=== PATIENT | female | born 1985 | race Caucasian/White ===

== ENCOUNTER → 2018-08-18 | Outpatient (CLI) | payer OTHER ==
[~2018-08-18] MED LIST: ACET325; ALBU90I; ALBU90OI; AMOCLA875 PO; AMOX250 PO; AMOX500 PO; AZIT500 PO; Adipex-P37.5 M1 PO; BIRTH CONTROL PO; CEPH500 PO; CIPR500 PO; CYCL10 PO; DIPH25 PO; HYDACE10B PO; HYDACE5 PO; HYDACE5325 PO; IBUP600 PO; IBUP800; LAVAP4L PO; MELO7.5 PO; META800 PO; METR500 PO; MULVITMINE; NAPR550 PO; NEOPOLHCSU OT; NORETHTP; OXYACE5T PO; PENVK500 PO; PHENA200 PO; PROACE100 PO; Permethrin60 GM TP; RANI150; RXCODACET PO; RXCYCL10 PO; RXNAPNA550 PO; RXPHEN200 PO; RXPROM25 PO; RXSULTRIDS PO; SULTRIDS PO
[2018-08-18 16:19] LABS: BASOPHILS ABSOLUTE AUTO 0.01 K/mm3 (0.00-0.23); BASOPHILS PERCENT AUTO 0 % (0-2); EOSINOPHILS ABSOLUTE AUTO 0.08 K/mm3 (0.00-0.68); EOSINOPHILS PERCENT AUTO 1 % (0-6); Hematocrit 39.9 % (33.0-51.0); Hemoglobin 13.2 g/dL (11.5-16.0); IMMATURE GRAN ABSOLUTE AUTO 0.02 K/mm3 (0.00-0.10); IMMATURE GRAN PERCENT AUTO 0 % (0-1); LYMPHOCYTES ABSOLUTE AUTO 1.99 K/mm3 (0.84-5.20); LYMPHOCYTES PERCENT AUTO 34 % (21-46); MONOCYTES ABSOLUTE AUTO 0.45 K/mm3 (0.16-1.47); MONOCYTES PERCENT AUTO 8 % (4-13); Mean Corpuscular HGB 28.1 pg (26.0-34.0); Mean Corpuscular HGB Conc 33.1 g/dL (31.5-36.5); Mean Corpuscular Volume 85 fL (80-100); Mean Platelet Volume 10.3 fL (9.1-12.4); NEUTROPHILS ABSOLUTE AUTO 3.23 K/mm3 (1.96-9.15); NEUTROPHILS PERCENT AUTO 56 % (41-73); Platelet Count 275 K/mm3 (150-400); RDW Coefficient Variation 13.1 % (11.7-14.2); RDW Standard Deviation 40.4 fL (35.1-46.3); White Blood Cell Count 5.78 K/mm3 (4.00-11.30)
[2018-08-18 16:38] LABS: Anion Gap 9 mmol/L (6-16); Blood Urea Nitrogen 10 mg/dL (8-24); Bun/Creatinine Ratio 14.5 (12.0-20.0); CO2, Blood 27 mmol/L (21-32); Calcium, Blood 9.3 mg/dL (8.5-10.1); Chloride, Blood 102 mmol/L (98-108); Creatinine, Blood 0.69 mg/dL (0.40-1.00); Glomerular Filtration Rate >60 (60-); Glucose, Blood 87 mg/dL (70-99); Potassium, Blood 3.7 mmol/L (3.5-5.5); Sodium, Blood 138 mmol/L (136-145); Thyroid Stimulating Hormone 0.832 uIU/mL (0.360-4.800)
== END ==
LOC: LAB SHORT 16:14 → LAB EV 16:14
PROVIDERS: Physician Assistant Surgical
DX: R07.9 Chest pain, unspecified (principal); R53.83 Other fatigue
CPT/HCPCS: 80048; 84443; 85025

== ENCOUNTER 2022-06-24 15:18 | Emergency (ER) | payer OTHER ==
[~2022-06-24] VITALS: Ht 160 cm; Wt 113.4 kg
[~2022-06-24 15:18] MED LIST changes: +Naprosyn500 MG PO
[2022-06-24 16:19] LABS: Source, Urine Clean Catch
[2022-06-24 16:21] LABS: Appearance, Urine Cloudy (Clear); Bilirubin, Urine Neg (Neg); Blood, Urine 3+ (Neg); Glucose Qualitative, Urine Neg (Neg); Ketones, Urine Neg (Neg); Leukocyte Esterase, Urine Neg (Neg); Nitrite, Urine Neg (Neg); Protein, Urine Neg (Neg); Specific Gravity, Urine 1.015 (1.003-1.022); Urobilinogen, Urine NORM (Normal)
[2022-06-24 16:29] LABS: Color, Urine Pale Yellow (P-Yellow)
[2022-06-24 16:30] LABS: Amorphous Heavy (0-Heavy)
[2022-06-24 16:31] LABS: White Blood Cells, Urine 0-2 /hpf (0-5)
[2022-06-24 16:32] LABS: Squamous Epithelial Cells Few /hpf (Few)
[2022-06-24 16:33] LABS: Bacteria Mod /hpf
[2022-06-24] MEDS ORDERED: Pyridium200 MG PO (17:25)
[2022-06-24] MEDS ORDERED: CEFD300 PO (17:25)
== END 2022-06-24 17:53 | disposition home or self-care (01) ==
LOC: ER 15:18
PROVIDERS: Physician Assistant
DX: N39.0 Urinary tract infection, site not specified (principal); B96.89 Other specified bacterial agents as the cause of diseases classified elsewhere
CPT/HCPCS: 81001

== ENCOUNTER → 2022-07-17 | Outpatient (CLI) | payer OTHER ==
[~2022-07-17] MED LIST changes: +CEFD300 PO; +Pyridium200 MG PO
== END | disposition home or self-care (01) ==
LOC: LAB 14:40 → LAB SHORT 14:40
DX: R30.9 Painful micturition, unspecified (principal)
CPT/HCPCS: 87086

== ENCOUNTER 2024-10-11 14:44 | Emergency (ER) | payer OTHER ==
[~2024-10-11] VITALS: Ht 162.6 cm; Wt 99.8 kg
[2024-10-11 16:18] LABS: BASOPHILS ABSOLUTE AUTO 0.03 K/mm3 (0.00-0.23); BASOPHILS PERCENT AUTO 0 % (0-2); EOSINOPHILS ABSOLUTE AUTO 0.25 K/mm3 (0.00-0.68); EOSINOPHILS PERCENT AUTO 3 % (0-6); Hematocrit 41.4 % (33.0-51.0); Hemoglobin 13.9 g/dL (11.5-16.0); IMMATURE GRAN ABSOLUTE AUTO 0.03 K/mm3 (0.00-0.10); IMMATURE GRAN PERCENT AUTO 0 % (0-1); LYMPHOCYTES PERCENT AUTO 17 % (21-46); MONOCYTES ABSOLUTE AUTO 0.42 K/mm3 (0.16-1.47); MONOCYTES PERCENT AUTO 6 % (4-13); Mean Corpuscular HGB 28.1 pg (26.0-34.0); Mean Corpuscular HGB Conc 33.6 g/dL (31.5-36.5); Mean Corpuscular Volume 84 fL (80-100); NEUTROPHILS ABSOLUTE AUTO 5.53 K/mm3 (1.96-9.15); NEUTROPHILS PERCENT AUTO 73 % (41-73); Platelet Count 345 K/mm3 (150-400); RDW Coefficient Variation 13.4 % (11.7-14.2); RDW Standard Deviation 40.9 fL (35.1-46.3); Red Blood Cell Count 4.94 M/mm3 (3.80-5.20); White Blood Cell Count 7.56 K/mm3 (4.00-11.30)
[2024-10-11 16:50] LABS: Albumin/Globulin Ratio 0.9 (0.8-1.8); Bilirubin, Total 0.6 mg/dL (0.1-1.0); Bun/Creatinine Ratio 15.7 (12.0-20.0); Calcium, Blood 9.3 mg/dL (8.5-10.1); Creatinine, Blood 0.57 mg/dL (0.40-1.00); Globulin, Blood 4.4 g/dL (2.2-4.0); Potassium, Blood 3.6 mmol/L (3.5-5.5); Total Protein, Blood 8.4 g/dL (6.4-8.2)
[2024-10-11] MEDS ORDERED: Ipratropium/Albuterol SulF 2.5-0.5MG/3 ML Amp INH ONE (17:25)
[2024-10-11] MEDS ORDERED: PredniSONE 20 MG Tab PO ONE (17:25)
[2024-10-11] MEDS ORDERED: Ondansetron HCl 2 MG / ML 2ML Vial ONE (18:12)
[2024-10-11] MEDS ORDERED: Ondansetron HCl 2 MG / ML 2ML Vial IV ONE (18:15)
[2024-10-11 18:17] VITALS: BP 145/62
[2024-10-11] MEDS ORDERED: Prednisone20 MG PO (18:21)
[2024-10-11] MEDS ORDERED: BUDESONIDE-FO10.2 G2 INH (18:21)
[2024-10-12] MEDS ORDERED: BUDESONIDE-FO10.2 G2 INH (08:09)
== END 2024-10-11 18:25 | disposition home or self-care (01) ==
LOC: ER 14:44
PROVIDERS: Physician Assistant
DX: J98.01 Acute bronchospasm (principal); Z79.899 Other long term (current) drug therapy
CPT/HCPCS: 71046; 80053; 84484; 85025; 93005; 93010; 94640; 94664; 96374; 99285-25; J2405; J7512

== ENCOUNTER 2024-12-01 21:15 | Inpatient (IN) | payer OTHER ==
[~2024-12-01] VITALS: Ht 160 cm; Wt 100.1 kg
[~2024-12-01 21:15] MED LIST changes: +BUDESONIDE-FO10.2 G2 INH; +Prednisone20 MG PO
[2024-12-01 21:43] LABS: BASOPHILS ABSOLUTE AUTO 0.03 K/mm3 (0.00-0.23); BASOPHILS PERCENT AUTO 0 % (0-2); EOSINOPHILS ABSOLUTE AUTO 0.09 K/mm3 (0.00-0.68); EOSINOPHILS PERCENT AUTO 1 % (0-6); Hematocrit 40.9 % (33.0-51.0); Hemoglobin 13.6 g/dL (11.5-16.0); IMMATURE GRAN ABSOLUTE AUTO 0.02 K/mm3 (0.00-0.10); IMMATURE GRAN PERCENT AUTO 0 % (0-1); LYMPHOCYTES ABSOLUTE AUTO 1.24 K/mm3 (0.84-5.20); LYMPHOCYTES PERCENT AUTO 15 % (21-46); MONOCYTES ABSOLUTE AUTO 0.47 K/mm3 (0.16-1.47); MONOCYTES PERCENT AUTO 6 % (4-13); Mean Corpuscular HGB 28.3 pg (26.0-34.0); Mean Corpuscular HGB Conc 33.3 g/dL (31.5-36.5); Mean Corpuscular Volume 85 fL (80-100); Mean Platelet Volume 9.7 fL (9.1-12.4); NEUTROPHILS ABSOLUTE AUTO 6.18 K/mm3 (1.96-9.15); NEUTROPHILS PERCENT AUTO 77 % (41-73); Platelet Count 321 K/mm3 (150-400); RDW Coefficient Variation 13.7 % (11.7-14.2); RDW Standard Deviation 42.6 fL (35.1-46.3); White Blood Cell Count 8.03 K/mm3 (4.00-11.30)
[2024-12-01 22:06] LABS: Albumin, Blood 4.2 g/dL (3.4-5.0); Albumin/Globulin Ratio 0.9 (0.8-1.8); Bilirubin, Total 0.5 mg/dL (0.1-1.0); Bun/Creatinine Ratio 15.9 (12.0-20.0); Creatinine, Blood 0.69 mg/dL (0.40-1.00); Globulin, Blood 4.5 g/dL (2.2-4.0); Potassium, Blood 3.5 mmol/L (3.5-5.5); Total Protein, Blood 8.7 g/dL (6.4-8.2)
[2024-12-01 22:37] LABS: CORONAVIRUS COVID-19 AG Negative (NEGATIVE); INFLUENZA A AG Negative (NEGATIVE); INFLUENZA B AG Negative (NEGATIVE)
[2024-12-02] MEDS ORDERED: Ketorolac Tromethamine 30mg Vial IV ONE (00:35)
[2024-12-02] MEDS ORDERED: Ondansetron HCl 2 MG / ML 2ML Vial IV PRN (01:05)
[2024-12-02] MEDS ORDERED: FLU VACC TS2024-25(6MOS UP)/PF 45 MCG/0.5 ML SYRINGE IM ONE (01:05)
[2024-12-02] MEDS ORDERED: Ipratropium/Albuterol SulF 2.5-0.5MG/3 ML Amp INH PRN (01:05)
[2024-12-02 05:29] LABS: BASOPHILS ABSOLUTE AUTO 0.03 K/mm3 (0.00-0.23); BASOPHILS PERCENT AUTO 0 % (0-2); EOSINOPHILS ABSOLUTE AUTO 0.13 K/mm3 (0.00-0.68); EOSINOPHILS PERCENT AUTO 2 % (0-6); Hematocrit 38.7 % (33.0-51.0); Hemoglobin 12.6 g/dL (11.5-16.0); IMMATURE GRAN ABSOLUTE AUTO 0.02 K/mm3 (0.00-0.10); IMMATURE GRAN PERCENT AUTO 0 % (0-1); LYMPHOCYTES ABSOLUTE AUTO 1.28 K/mm3 (0.84-5.20); LYMPHOCYTES PERCENT AUTO 17 % (21-46); MONOCYTES ABSOLUTE AUTO 0.45 K/mm3 (0.16-1.47); MONOCYTES PERCENT AUTO 6 % (4-13); Mean Corpuscular HGB 27.6 pg (26.0-34.0); Mean Corpuscular HGB Conc 32.6 g/dL (31.5-36.5); Mean Corpuscular Volume 85 fL (80-100); Mean Platelet Volume 9.9 fL (9.1-12.4); NEUTROPHILS ABSOLUTE AUTO 5.48 K/mm3 (1.96-9.15); NEUTROPHILS PERCENT AUTO 74 % (41-73); Platelet Count 301 K/mm3 (150-400); RDW Coefficient Variation 13.8 % (11.7-14.2); RDW Standard Deviation 42.5 fL (35.1-46.3); Red Blood Cell Count 4.56 M/mm3 (3.80-5.20); White Blood Cell Count 7.39 K/mm3 (4.00-11.30)
[2024-12-02 06:01] LABS: Albumin, Blood 3.6 g/dL (3.4-5.0); Albumin/Globulin Ratio 0.9 (0.8-1.8); Bilirubin, Total 0.6 mg/dL (0.1-1.0); Bun/Creatinine Ratio 15.4 (12.0-20.0); Calcium, Blood 9.5 mg/dL (8.5-10.1); Creatinine, Blood 0.65 mg/dL (0.40-1.00); Potassium, Blood 4.2 mmol/L (3.5-5.5); Total Protein, Blood 7.6 g/dL (6.4-8.2)
[2024-12-02] MEDS ORDERED: Enoxaparin 40 MG/0.4 ML SYR SC SCH (09:00)
[2024-12-02] MEDS ORDERED: Acetaminophen 500 MG Tab PO PRN (13:05)
[2024-12-02 14:40] VITALS: BP 137/79
--- NOTE | 2024-12-02 15:45 | NUR ---
ADMISSION NOTE: PATIENT ARRIVED TO THE UNIT VIA GURNEY AT 1435. SHE WAS ABLE TO SELF TRANSFER TO THE BED AND IS USING 1 L OF OXYGEN. PATIENT SETTLED IN ROOM, CALL LIGHT PROVIDED, NO SIGNS OR SYMPTOMS OF DISTRESS, PLAN OF CARE ONGOING.
[2024-12-02 19:16] VITALS: BP 133/89
[2024-12-02] MEDS ORDERED: GuaiFENesin 600 MG TabCR PO SCH (21:00)
--- NOTE | 2024-12-03 03:03 | NUR ---
SHIFT SUMMARY PT IS A/O X4, PLEASANT AND COOPERATIVE WITH CARE. O2 @1L VIA NASAL CANNULA, SAT'S>93%. PT DENIES PAIN. NO COUGH NOTED. LUNG SOUNDS DIMINISHED @BASES PER AUSCULTATION. PT TOOK A SHOWER @HS. INDEPENDENT W/I THE HOSPITAL ROOM. NO ACUTE DISTRESS/EVENTS DURING THIS SHIFT. PT IS ABLE TO MAKE HER NEEDS KNOWN. BED AT THE LOWEST POSITION, CALL LIGHT W/I REACH.
[2024-12-03 05:25] VITALS: BP 98/52
[2024-12-03 07:31] VITALS: BP 122/70
[2024-12-03 09:01] LABS: BASOPHILS ABSOLUTE AUTO 0.02 K/mm3 (0.00-0.23); BASOPHILS PERCENT AUTO 0 % (0-2); EOSINOPHILS ABSOLUTE AUTO 0.24 K/mm3 (0.00-0.68); EOSINOPHILS PERCENT AUTO 5 % (0-6); Hematocrit 38.9 % (33.0-51.0); Hemoglobin 12.6 g/dL (11.5-16.0); IMMATURE GRAN ABSOLUTE AUTO 0.02 K/mm3 (0.00-0.10); IMMATURE GRAN PERCENT AUTO 0 % (0-1); LYMPHOCYTES ABSOLUTE AUTO 1.61 K/mm3 (0.84-5.20); LYMPHOCYTES PERCENT AUTO 33 % (21-46); MONOCYTES ABSOLUTE AUTO 0.37 K/mm3 (0.16-1.47); MONOCYTES PERCENT AUTO 8 % (4-13); Mean Corpuscular HGB 27.5 pg (26.0-34.0); Mean Corpuscular HGB Conc 32.4 g/dL (31.5-36.5); Mean Corpuscular Volume 85 fL (80-100); NEUTROPHILS ABSOLUTE AUTO 2.61 K/mm3 (1.96-9.15); NEUTROPHILS PERCENT AUTO 54 % (41-73); Platelet Count 311 K/mm3 (150-400); RDW Coefficient Variation 13.6 % (11.7-14.2); RDW Standard Deviation 41.8 fL (35.1-46.3); Red Blood Cell Count 4.59 M/mm3 (3.80-5.20); White Blood Cell Count 4.87 K/mm3 (4.00-11.30)
[2024-12-03 09:20] LABS: Bun/Creatinine Ratio 21.6 (12.0-20.0); Calcium, Blood 9.2 mg/dL (8.5-10.1); Creatinine, Blood 0.6 mg/dL (0.40-1.00); Potassium, Blood 3.9 mmol/L (3.5-5.5)
[2024-12-03] MEDS ORDERED: PredniSONE 20 MG Tab PO SCH (09:30)
--- NOTE | 2024-12-03 10:26 | NUR ---
TRAILED PATIENT OFF OF O2. PATIENT SATING AT 90-93% ON ROOMAIR. PATIENT STAYS AT 92-94% ON 1-4 L TAKES 5 L TO GET PATIENT TO 95-97% PATIENT DID NOT FEEL COMFORTABLE BEING OFF OXYGEN SO OXYGEN STILL ON AT 5 L TO MAINTAIN AN OXYGEN SATURATION OF 95-97%.
--- NOTE | 2024-12-03 10:47 | NUR ---
PATIENT TITRATED BACK DOWN TO 2 L
--- NOTE | 2024-12-03 16:14 | NUR ---
REPORT TAKEN ON PT FROM KENDRA GARCIA FROM 346 MOVED INTO 303. NO CHANGES IN THE PT'S STATUS. PT IS RESTING COMFORTABLY WITH FAMILY AT BEDSIDE. PT ON 2L NC WITH PLAN TO TITRATE BACK TO BASELINE Ra. PT HAS NO QUESTIONS OR CONCERNS AT THIS TIME.
[2024-12-03 19:22] VITALS: BP 130/91
[2024-12-04 03:00] VITALS: BP 130/70
--- NOTE | 2024-12-04 06:11 | NUR ---
Pt did well this shift. VS WNL, remains on O2 2L/NC. remains on neb tx's with only x1 request this shift. Tylenol administered for headache. Awaiting home O2 study before discharge.
[2024-12-04 07:41] VITALS: BP 131/73
[2024-12-04] MEDS ORDERED: PRED20 PO (16:40)
--- NOTE | 2024-12-04 17:05 | NUR ---
PT WAS DISCHARGED WITH INSTRUCTIONS FOR FOLLOW UP WITH PCP. PT HAD NO QUESTIONS OR CONCERNS.
== END 2024-12-04 16:55 | disposition home or self-care (01) | DRG 189 ==
LOC: ER 21:15 → MEDS 12-02 01:01 → ERHOLD 12-02 01:01 → ER 12-02 01:01 → MEDS 12-02 14:30
PROVIDERS: Student in an Organized Health Care Education/Training Program; ADMIT Internal Medicine
DX: J96.01 Acute respiratory failure with hypoxia (principal); J98.11 Atelectasis; Z68.41 Body mass index [BMI] 40.0-44.9, adult; K21.9 Gastro-esophageal reflux disease without esophagitis; E66.9 Obesity, unspecified; G43.909 Migraine, unspecified, not intractable, without status migrainosus; M94.0 Chondrocostal junction syndrome [Tietze]; Z79.52 Long term (current) use of systemic steroids; Z79.899 Other long term (current) drug therapy; Z87.01 Personal history of pneumonia (recurrent); Z98.890 Other specified postprocedural states; Z28.21 Immunization not carried out because of patient refusal; J45.909 Unspecified asthma, uncomplicated
CPT/HCPCS: 36415; 71045; 71046; 71260; 80048; 80053; 83880; 84484; 84703; 85025; 85379; 87428-QW; 93005; 93010; 93306; 94640; 94664; 94760; 94761; 99285-25; A9270; J1650; J1885; J7512; Q9967